=== PATIENT | female | born 1940 | race Caucasian/White ===

== ENCOUNTER → 2017-07-06 15:05 | Outpatient (CLI) | payer MEDICARE, BC, SELFPAY ==
[2017-07-06 18:07] LABS: CRP 3.78 mg/L (0.0-3.0)
[2017-07-06 18:08] LABS: Vitamin D,25 Hydroxy 9.1 ng/mL (29.95-100.01)
[2017-07-08 16:10] LABS: Endomysial Antibody IgA Positive (Negative)
[2017-07-09 14:19] LABS: Immunoglobulin A 349 mg/dL (64-422); t-Transglutaminase IgA 64 U/mL (0-3)
== END ==
PROVIDERS: Family Provider Family Medicine; PCP Family Medicine; Visit Provider Internal Medicine Gastroenterology
DX: R19.7 Diarrhea, unspecified (principal); K90.0 Celiac disease
CPT/HCPCS: 36415; 82306; 82784; 83516; 86140; 86255

== ENCOUNTER → 2021-05-28 | Outpatient (CLI) | payer BC, SELFPAY ==
--- NOTE | 2021-05-28 14:34 | BI_ITS ---
MAMMOGRAPHY - UNILATERAL DIAGNOSTIC: RIGHT BREAST REASON FOR EXAM: Female, 81 years old. ABN MAMM 6 MO FU CALCS PERTINENT HISTORY: Non-contributory. TECHNIQUE: Digital examination. Mediolateral oblique (MLO) and craniocaudad (CC) views of the breast were obtained. CAD: CAD was performed on this study. COMPARISON: 10/02/2020 FINDINGS: Breast Composition: The breasts are heterogeneously dense, which may obscure small masses. There are linear fine linear calcifications in the upper outer quadrant of the right breast at mid depth worrisome for ductal carcinoma in situ in Sterotactic breast biopsy is recommended. No other significant abnormalities are identified. BI/DIAG MAMM W/CAD, UNILAT IMPRESSION: Stereotactic guided biopsy recommended, as described above. (F) ASSESSMENT CATEGORY: BIRADS Category 4: Suspicious - Biopsy Should Be Considered. A letter regarding these results will be sent to the patient by the facility within 30 days. FOLLOW-UP RECOMMENDATION: Stereo biopsy recommended. (F) Approximately 10% of breast cancers are not detected by mammography. A normal mammogram should not delay biopsy of a clinically suspicious abnormality. Electronically Signed: Collin Smith MD at 15:21 EDT ,
== END | disposition home or self-care (01) ==
PROVIDERS: PCP Family Medicine; Referring Provider Family Medicine; Visit Provider Family Medicine
DX: R92.8 Other abnormal and inconclusive findings on diagnostic imaging of breast (principal)
CPT/HCPCS: 77061; 77065; G0279

== ENCOUNTER → 2021-07-14 | Outpatient (CLI) | payer BC, SELFPAY ==
--- NOTE | 2021-07-14 | BRBX_PTH ---
PATIENT: JOELLE PARIKH LOC: [facility] U#:[id number] AGE/SX: 81/F ROOM: RE07/14/[address]: Dr. Poornima Guthrie MD : [id number] BED: DIS: 07/14/2021 SPEC #: [id number] RECD: 07/14/21 12:41 STATUS: ERVIN MACK #: [id number] HALLE: 07/14/21 00:[address]: Poornima Guthrie DEPT: SURGICAL PATHOLOGY RECD BY: Asad Conde ENTERED: 07/14/21 12:42 SP TYPE: BREAST BX OTHR DR: Dr. Laina Hinojosa MD Tissues: Right breast, NOS Procedures: Surgery Specimen Level IV HEADER OPERATION: Right breast stereotactic biopsy PRE-OP DIAGNOSIS: Fine linear calcifications in the upper outer quadrant of right breast at mid depth TISSUE SUBMITTED: Right breast core tissue ISCHEMIC TIME: 1 minute FIXATION TIME: 8 hours MICROSCOPIC DIAGNOSIS Right breast, upper outer quadrant, stereotactic biopsy: Minimal nonproliferative fibrocystic change. Focal intraductal hyperplasia without atypia. Involutional change. Banal microcalcifications of ductal epithelium and vessel otero. Skin fragment with no pathologic change. AM:carito 07/15/2021 COMMENT Case has been reviewed in consultation with Dr. Beck who concurs with the above diagnosis. IDC:ERICH MICROSCOPIC DESCRIPTION Slides are reviewed. GROSS DESCRIPTION Received in fixative is one container labeled with the patient's name and designated right breast. The specimen consists of multiple elongated fragments of fr[place]-yellow fibroadipose tissue that in aggregate measure 2.5 x 2.5 x 0.3 cm. The entire specimen is submitted in one cassette. / ERICH:carito 07/14/2021 TC:5 CPT: 16687
--- NOTE | 2021-07-14 12:47 | OP.PCM_ITS ---
Report of Operation Date of Procedure: 07/14/21 Pre-Operative Diagnosis: abnormal calcifications on right breast mammograms Post-Operative Diagnosis: same Surgery/Procedure Performed:: right stereotactic breast biopsy Description of Surgical Findings:: calcifications in breast tissue Surgeon: Poornima Guthrie Type of Anesthesia: Local Specimen's removed: left breast tissue Estimated Blood Loss (mL): minimal Description of Procedure: After informed consent was given, the patient was brought into the Breast Biopsy suite. Appropriate time out protocol was followed. The patient was placed in the prone position on the stereotactic biopsy table. The patient?s right breast was then placed in the opening at the head of the biopsy table. A music theory professor compression mammogram was then obtained in the CC view. The suspicious radiological lesion was thus identified. Stereo pictures of the lesion were then taken for XYZ coordinates. The Mammotome biopsy stylus was then positioned where it would be entering into the patient?s breast. The skin at this site was then cleansed with a surgical skin preparation. The skin and subcutaneous tissues at this site were then infiltrated with 1% xylocaine. A small skin incision was made with an 11 blade scalpel. The biopsy stylus was then positioned into the patient?s breast at the proper coordinates of depth. Using the Mammotome vacuum-assist device, several core samples of breast tissue were obtained. A specimen mammogram was the obtained. It revealed that the abnormal calcifications were within the specimen. I reviewed this personally and concluded that the tissue sampling was adequate. A hemostatic marker clip was then placed into the biopsy cavity and a music theory professor film revealed that it was properly deployed. The patient was then placed in the supine position and pressure was applied to the breast until no active bleeding was noted. A nylon suture was applied to reapproximate the skin. A unilateral mammogram in the CC and MLO view were then taken which revealed that the marker clip was in the same area as the previous suspicious lesion. The patient tolerated the procedure well and was discharged from the Breast Biopsy suite in good condition. Complications none noted
== END | disposition home or self-care (01) ==
LOC: BIRAD 10:58
PROVIDERS: PCP Family Medicine; Visit Provider Surgery
DX: N60.91 Unspecified benign mammary dysplasia of right breast (principal); N60.11 Diffuse cystic mastopathy of right breast; R92.0 Mammographic microcalcification found on diagnostic imaging of breast
CPT/HCPCS: 19081; 88305; J7050